=== PATIENT | female | born 1940 | race Caucasian/White ===

== ENCOUNTER 2021-01-29 13:21 | Outpatient (CLI) | payer MEDICARE ==
[2021-01-30 04:03] LABS: SARS-CoV-2 PCR by NAA Not Detected (NotDetected)
== END 2021-01-29 13:22 | disposition home or self-care (01) ==
LOC: CSHLAB 13:21
PROVIDERS: ATTEND Internal Medicine Gastroenterology
DX: Z20.822 Contact with and (suspected) exposure to COVID-19 (principal); K63.5 Polyp of colon
CPT/HCPCS: 87635; U0003; U0005

== ENCOUNTER 2021-02-01 07:38 | Day surgery (SDC) | payer MEDICARE ==
[2021-01-30 14:53] VITALS: BMI 20.6
[2021-02-01] MEDS ORDERED: Lidocaine 1% MPF 2 ML VIAL ONE (08:26)
[2021-02-01] MEDS ORDERED: PROPOFOL 40 ML ONE (09:20)
[2021-02-01] MEDS ORDERED: Lidocaine 1% PF 5 ML VIAL ONE (09:20)
[2021-02-01] MEDS ORDERED: PROPOFOL 20 ML ONE ×2 (09:50→10:06)
== END 2021-02-01 11:30 | disposition home or self-care (01) ==
LOC: CSHSDC 07:38
PROVIDERS: ATTEND Internal Medicine Gastroenterology
PROC: 0DBL8ZX Excision of Transverse Colon, Via Natural or Artificial Opening Endoscopic, Diagnostic (ICD-10-PCS; principal; 2021-02-01)
DX: Z12.11 Encounter for screening for malignant neoplasm of colon (principal); K63.5 Polyp of colon; Q43.8 Other specified congenital malformations of intestine; K64.9 Unspecified hemorrhoids; Z86.010 Personal history of colon polyps; I10 Essential (primary) hypertension; E03.9 Hypothyroidism, unspecified; J30.9 Allergic rhinitis, unspecified; E04.1 Nontoxic single thyroid nodule; Z87.442 Personal history of urinary calculi; Z88.2 Allergy status to sulfonamides; Z88.1 Allergy status to other antibiotic agents
CPT/HCPCS: 88305; J2704

== ENCOUNTER 2021-08-28 10:01 | Outpatient (CLI) | payer MEDICARE | END 2021-08-28 10:02 | disposition home or self-care (01) | LOC: CSHMAMMO 10:01 | PROVIDERS: ATTEND Obstetrics & Gynecology | DX: Z12.31 Encounter for screening mammogram for malignant neoplasm of breast (principal); Z91.89 Other specified personal risk factors, not elsewhere classified | CPT/HCPCS: 77063; 77067 ==

== ENCOUNTER 2023-09-09 09:58 | Outpatient (CLI) | payer MEDICARE | END 2023-09-09 09:59 | disposition home or self-care (01) | LOC: CSHMAMMO 09:58 | PROVIDERS: ATTEND Obstetrics & Gynecology | DX: Z12.31 Encounter for screening mammogram for malignant neoplasm of breast (principal); Z91.89 Other specified personal risk factors, not elsewhere classified | CPT/HCPCS: 77063; 77067 ==

== ENCOUNTER 2024-09-10 12:24 | Outpatient (CLI) | payer MEDICARE | END 2024-09-10 12:25 | disposition home or self-care (01) | LOC: CSHMAMMO 12:24 | PROVIDERS: ATTEND Obstetrics & Gynecology | DX: Z12.31 Encounter for screening mammogram for malignant neoplasm of breast (principal) | CPT/HCPCS: 77063; 77067 ==